=== PATIENT | male | born 1995 | race Caucasian/White ===

== ENCOUNTER 2024-12-30 21:38 | Emergency (ER) | payer SELFPAY ==
[~2024-12-30] VITALS: Ht 160 cm; Wt 73.0 kg
[2024-12-30 22:02] VITALS: O2SAT 98
[2024-12-30] MEDS ORDERED: ACYCLOVIR 400 MG TABLET PO ONE (23:15)
[2024-12-30] MEDS ORDERED: HYPR15DR23 EACHEYE (23:18)
[2024-12-30] MEDS ORDERED: ACYC200C31 MT (23:18)
[2024-12-30] MEDS ORDERED: P20 MT (23:18)
[2024-12-30] MEDS: PREDNISONE 20MG TABLET PO ONE (23:56)
[2024-12-31] MEDS: ACYCLOVIR 400 MG TABLET PO NR (00:11)
[2024-12-31 00:13] VITALS: BP 122/73; PULSE 89; RESP 18; TEMP 36.8; O2SAT 98
== END 2024-12-31 00:25 | disposition home or self-care (01) ==
LOC: ER 21:38
DX: G51.0 Bell's palsy (principal); Z79.52 Long term (current) use of systemic steroids
CPT/HCPCS: 99283; J7512